=== PATIENT | female | born 1985 | race Caucasian/White ===

== ENCOUNTER 2019-03-09 20:06 | Emergency (ER) | payer BC ==
[2019-03-09] MEDS ORDERED: Sodium Chloride 0.9% 2.5 ML Syringe FLUSH PRN (20:45)
[2019-03-09] MEDS ORDERED: Acetaminophen/HYDROcodone 325-7.5 MG Tab PO ONE (20:45)
[2019-03-09] MEDS ORDERED: Sodium Chloride 0.9% 10 ML Syringe FLUSH PRN (20:45)
[2019-03-09] MEDS ORDERED: Ondansetron 4 MG/2 ML SDV IVPUSH ONE (20:45)
[2019-03-09] MEDS ORDERED: Ketorolac 30 MG/ML SDV IVPUSH ONE (20:45)
--- NOTE | 2019-03-09 20:50 | EDM.PDOC ---
ED HPI GENERAL MEDICAL PROBLEM - General Chief Complaint: Back Pain or Injury Stated Complaint: BACK INJURY Time Seen by Provider: 03/09/19 20:30 - History of Present Illness INITIAL COMMENTS - FREE TEXT/NARRATIVE: HISTORY AND PHYSICAL: History of present illness: The patient is a 33-year-old female who presents with complaints of deep lumbar back pain more on the left side that started as she was doing lifts in her home gym this evening about a half an hour ago. The patient says that she just broke back from [place] and was in a car for about 7 to 8 hours and was starting to feel some discomfort in her left back during this but did not have any kidney issues such as hematuria frequency urgency and no systemic complaints of fever chills abdominal pain nausea or vomiting. She said that after she got home she went to do her workout and was doing this exercise when she felt a sudden pain in her left back. She says that it does trigger tingling down both legs as well as some slight pelvic pain but she has no discrete abdominal pain and it originates in her deep back. She says that she cannot take any medications for this and she has no weakness in her lower extremities. She has not had any urination since this event 30 minutes ago and she denies . She does tell me that she has an ovarian cyst that she is going for evaluation in the clinic this week but it does not feel like that type of pain. She says that she has had ovarian cyst in the past and is having an evaluation in the clinic for that. She says that the slight pelvic pain she is experiencing seems to be originating more from her back and not from the anterior abdomen. Review of systems: As per history of present illness and below otherwise all systems reviewed and negative. Past medical history: As per history of present illness and as reviewed below otherwise noncontributory. Surgical history: As per history of present illness and as reviewed below otherwise noncontributory. Social history: No reported history of drug or alcohol abuse. Family history: As per history of present illness and as reviewed below otherwise noncontributory. Physical exam: General: Well-developed well-nourished mildly overweight female who is nontoxic and looks very uncomfortable with any position changes HEENT: Atraumatic, normocephalic, pupils reactive, negative for conjunctival pallor or scleral icterus, mucous membranes moist, throat clear, neck supple, nontender, trachea midline. Lungs: Clear to auscultation, breath sounds equal bilaterally, chest nontender. Heart: S1S2, regular, and rhythm no overt murmurs Abdomen: Soft, nondistended, nontender. Negative for masses or hepatosplenomegaly. Negative for costovertebral tenderness. Absolutely no tenderness rebound or guarding on deep palpation of the abdomen. Pelvis: Stable nontender. Genitourinary: Deferred. Rectal: Intact perianal sensation and a normal push and squeeze and no diminishment of rectal tone is appreciated Extremities: Atraumatic, negative for cords or calf pain. Neurovascular unremarkable. Neuro: Awake, alert, oriented. Cranial nerves II through XII unremarkable. Cerebellum unremarkable. Motor and sensory unremarkable throughout. Exam nonfocal. Dorsi and plantar flexion is intact 5/5 inclusive of the great toe and patellar reflexes are +2/4 bilaterally. Back: There are no midline step-offs tenderness defects of the thoracic or lumbar spine and no posterior pelvis tenderness. There is no CVA tenderness. There is some mild pain with palpation of the lumbar spine more on the left but I cannot reproduce the pain exactly. Diagnostics: Lumbar spine x-rays, patient denies and does not want a test CT scan of the lumbar spine Therapeutics: Norflex Toradol Zofran [place],dilaudid U Medrol She was able to free void urine here in the ED and does not have a sensation of diminished urge to urinate and does not feel like she is retaining urine. I discussed with her and her significant other about bedside her CT scan results revealing a disc bulge at L4-L5 and a broad disc bulge at L5-S1. At this point she does not meet criteria for an emergent MRI but she will need an MRI in the near future to further evaluate this and develop her care plan. She does follow with the nurse practitioner at [facility] and has a scheduled appointment this week and I told her that if she chooses outpatient management that she can follow-up and get an outpatient MRI and I will give her a prescription for same as long as she follows up with her clinic provider. I have offered her observation admission due to the status of her pain and she is currently discussing that with her significant other. On my own clinical evaluation she is moving easier but still looks very uncomfortable and says that the pain is slightly diminished but is still very present. It is not radiating down her leg and she has no tingling or numbness in her legs. She tells me that the pain never radiated down her legs, and it seemed to maybe migrate a little bit to her pelvis. That pelvic pain is now gone. She is also aware of her incidental right renal stone. After discussion with her significant other the patient would like to decline admission and wants to go home. I have given her medications for home and have strongly advised her on reasons to return to the ED and the importance of following up with her provider at [facility]. I have also given her prescription for an outpatient MRI that she can schedule and I will send those results to her nurse practitioner at [facility]. Impression: acute Lumbar back pain, disc bulging at L4-L5, L5-S1 Definitive disposition and diagnosis as appropriate pending reevaluation and review of above. Left Lower Back Pain Score (Numeric/FACES): 10 - Related Data Allergies Allergy/AdvReac Type Severity Reaction Status Date / Time No Known Allergies Allergy Verified 03/09/19 20:24 Home Meds: Home Meds . [No Known Home Meds] 03/09/19 [History] Past Medical History - Infectious Disease History Infectious Disease History: Reports: Chicken Pox - Past Surgical History Musculoskeletal Surgical History: Reports: Shoulder Surgery Other Musculoskeletal Surgeries/Procedures:: shoulders bilaterally Social & Family History - Family History Family Medical History: Noncontributory - Tobacco Use Smoking Status *Q: Never Smoker - Caffeine Use Caffeine Use: Reports: Coffee, Soda - Recreational Drug Use Recreational Drug Use: No ED ROS GENERAL - Review of Systems Review Of Systems: Comprehensive ROS is negative, except as noted in HPI. ED EXAM, GENERAL - Physical Exam Exam: See Below (see dictation) Course - Vital Signs Last Recorded V/S: Last Vital Signs Temp 37.1 C 03/09/19 20:24 Pulse 54 L 03/09/19 23:06 Resp 17 03/09/19 23:06 BP 127/74 03/09/19 23:06 Pulse Ox 97 03/09/19 23:06 - Orders/Labs/Meds Orders: Active Orders 24 hr Category Date Time Status Sodium Chloride 0.9% [Saline Flush] Med 03/09/19 20:45 Active 10 ml FLUSH ASDIRECTED PRN Sodium Chloride 0.9% [Saline Flush] Med 03/09/19 20:45 Active 2.5 ml FLUSH ASDIRECTED PRN Saline Lock Insert [OM.PC] Stat Oth 03/09/19 20:45 Ordered Medication Orders Sodium Chloride (Saline Flush) 10 ml FLUSH ASDIRECTED PRN PRN Reason: Keep Vein Open Sodium Chloride (Saline Flush) 2.5 ml FLUSH ASDIRECTED PRN PRN Reason: Keep Vein Open Meds: Medications Generic Name Dose Route Start Last Admin Trade Name Freq PRN Reason Stop Dose Admin Sodium Chloride 10 ml 03/09/19 20:45 Saline Flush FLUSH ASDIRECTED PRN Keep Vein Open Sodium Chloride 2.5 ml 03/09/19 20:45 Saline Flush FLUSH ASDIRECTED PRN Keep Vein Open Discontinued Medications Generic Name Dose Route Start Last Admin Trade Name Freq PRN Reason Stop Dose Admin Hydrocodone Bitart/Acetaminophen 1 tab 03/09/19 20:45 03/09/19 20:51 [place] 325-7.5 Mg PO 03/09/19 20:46 1 tab ONETIME ONE Administration Hydromorphone HCl 1 mg 03/09/19 21:41 03/09/19 22:20 Dilaudid IVPUSH 03/09/19 21:42 1 mg ONETIME ONE Administration Hydromorphone HCl 1 mg 03/09/19 23:14 03/09/19 23:41 Dilaudid IVPUSH 03/09/19 23:15 1 mg ONETIME ONE Administration Ketorolac Tromethamine 30 mg 03/09/19 20:45 03/09/19 20:51 Toradol IVPUSH 03/09/19 20:46 30 mg ONETIME ONE Administration Methylprednisolone Sodium Succinate 125 mg 03/09/19 23:16 03/09/19 23:38 Solu-Medrol IVPUSH 03/09/19 23:17 125 mg ONETIME ONE Administration Methylprednisolone Sodium Succinate 125 mg 03/09/19 23:18 03/09/19 23:41 Solu-Medrol IVPUSH 03/09/19 23:19 Not Given ONETIME ONE Ondansetron HCl 4 mg 03/09/19 20:45 03/09/19 20:51 Zofran IVPUSH 03/09/19 20:46 4 mg ONETIME ONE Administration Orphenadrine Citrate 60 mg 03/09/19 20:45 03/09/19 20:51 Norflex IV 03/09/19 20:46 60 mg ONETIME ONE Administration Departure - Departure Time of Disposition: 23:51 Disposition: Home, Self-Care 01 Condition: Fair Clinical Impression: Lumbar disc herniation - Discharge Information Referrals: Ritika Shaw PROFESSOR OF MUSICOLOGY [Primary Care Provider] - Forms: ED Department Discharge Additional Instructions: The following information is given to patients seen in the emergency department who are being discharged to home. This information is to outline your options for follow-up care. We provide all patients seen in our emergency department with a follow-up referral. The need for follow-up, as well as the timing and circumstances, are variable depending upon the specifics of your emergency department visit. If you don't have a primary care physician on staff, we will provide you with a referral. We always advise you to contact your personal physician following an emergency department visit to inform them of the circumstance of the visit and for follow-up with them and/or the need for any referrals to a consulting specialist. The emergency department will also refer you to a specialist when appropriate. This referral assures that you have the opportunity for followup care with a specialist. All of these measure are taken in an effort to provide you with optimal care, which includes your followup. Under all circumstances we always encourage you to contact your private physician who remains a resource for coordinating your care. When calling for followup care, please make the office aware that this follow-up is from your recent emergency room visit. If for any reason you are refused follow-up, please contact the [facility] emergency department at and ask to speak to the emergency department charge nurse. [address] [place] [address] Please schedule your outpatient MRI with the prescription you have been given and fill all prescriptions for medication and start taking tomorrow as directed. Please connect with your provider at [facility] and update her on tonight's events and the outpatient MRI that you are scheduling and discussed with her your upcoming appointment for follow-up care. Return to ER as needed and as discussed. Sepsis Event Note - Evaluation Sepsis Screening Result: No Definite Risk - Focused Exam Vital Signs: Vital Signs Temp Pulse Resp BP Pulse Ox 01/26/20 23:06 54 L 17 127/74 97 03/09/19 22:13 52 L 16 122/60 97 03/09/19 20:24 37.1 C 68 20 136/83 99 Date Exam was Performed: 03/09/19 Time Exam was Performed: 23:51 - My Orders Last 24 Hours: My Active Orders 03/09/19 20:45 Sodium Chloride 0.9% [Saline Flush] 10 ml FLUSH ASDIRECTED PRN Sodium Chloride 0.9% [Saline Flush] 2.5 ml FLUSH ASDIRECTED PRN Saline Lock Insert [OM.PC] Stat - Assessment/Plan Last 24 Hours: My Active Orders 03/09/19 20:45 Sodium Chloride 0.9% [Saline Flush] 10 ml FLUSH ASDIRECTED PRN Sodium Chloride 0.9% [Saline Flush] 2.5 ml FLUSH ASDIRECTED PRN Saline Lock Insert [OM.PC] Stat
--- NOTE | 2019-03-09 21:36 | CR ---
INDICATION: Lumbar spine pain after working out TECHNIQUE: Lumbar spine radiograph 3 views COMPARISON: None FINDINGS: Bone: No acute fractures or aggressive bone lesions are identified. Alignment is normal. Disc: The disc spaces are unremarkable in appearance. The facet joints are unremarkable. Soft tissue: Unremarkable. No radiopaque foreign bodies are seen. IMPRESSION: 1. No acute osseous injuries or abnormalities are noted. Dictated by: Cooper Arndt MD @ 03/09/2019 21:35:53 (Electronically Signed)
[2019-03-09] MEDS ORDERED: HYDROmorphone 1 MG/ML Syringe IVPUSH ONE ×2 (21:41→23:14)
--- NOTE | 2019-03-09 22:19 | CT ---
INDICATION: Back pain TECHNIQUE: CT lumbar spine without contrast. COMPARISON: Plain films from the same day FINDINGS: The lumbar spine alignment is within normal limits. The vertebral body heights are preserved without a significant compression deformity. The facets are anatomically aligned. There is no evidence of an acute lumbar spine fracture. There are degenerative anterior osteophytes at the T11-12 level. There is a disc bulge at L4-5 and a disc bulge versus broad protrusion at L5-S1. No paravertebral soft tissue mass is seen. There is a 5 mm nonobstructive right renal calcification. IMPRESSION: No evidence of an acute lumbar spine fracture. Mild degenerative disc disease in the lower lumbar spine. Dictated by Sudeep Ash MD @ 03/09/2019 10:18:48 PM Please note that all CT scans at this facility use dose modulation, iterative reconstruction, and/or weight-based dosing when appropriate to reduce radiation dose to as low as reasonably achievable. Dictated by: Sudeep Ash MD @ 03/09/2019 22:19:06 (Electronically Signed)
[2019-03-09] MEDS ORDERED: methylPREDNISolone Sodium Succinate 125 MG/2 ML SDV IVPUSH ONE ×2 (23:16→23:18)
[2019-03-10 00:14] VITALS: BP 128/66; PULSE 47
== END 2019-03-10 00:12 | disposition home or self-care (01) ==
LOC: MW.ED 20:06
DX: S33.141A Dislocation of L4/L5 lumbar vertebra, initial encounter (principal); S33.39XA Dislocation of other parts of lumbar spine and pelvis, initial encounter; X50.0XXA Overexertion from strenuous movement or load, initial encounter
CPT/HCPCS: 72100; 72131; 96374; 96375; 96376; 99284; A9270; J1170; J1885; J2360; J2405; J2930

== ENCOUNTER 2019-06-28 08:09 | Emergency (ER) | payer BC ==
--- NOTE | 2019-06-28 08:33 | EDM.PDOC ---
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 She complains of pain in the right shoulder with abduction of right shoulder. She denies any neuro/vascular complaints. She states that she has had problems with her right shoulder in the past. She denies any other complaints or symptoms at this time. Right Shoulder Pain Score (Numeric/FACES): 5 - Related Data Allergies Allergy/AdvReac Type Severity Reaction Status Date / Time No Known Allergies Allergy Verified 06/28/19 08:29 Home Meds: Home Meds . [No Known Home Meds] 03/09/19 [History] Past Medical History - Infectious Disease History Infectious Disease History: Reports: Chicken Pox - Past Surgical History Musculoskeletal Surgical History: Reports: Shoulder Surgery Other Musculoskeletal Surgeries/Procedures:: shoulders bilaterally Social & Family History - Family History Family Medical History: Noncontributory - Caffeine Use Caffeine Use: Reports: Coffee, Soda Review of Systems - Review of Systems Review Of Systems: Comprehensive ROS is negative, except as noted in HPI. ED EXAM, GENERAL - Physical Exam Exam: See Below Exam Limited By: No Limitations General Appearance: Alert, WD/WN, No Apparent Distress Eye Exam: Bilateral Eye: EOMI, Normal Inspection, PERRL Ears: Normal External Exam, Normal Canal Nose: Normal Inspection Throat/Mouth: Normal Inspection, Normal Oropharynx Head: Atraumatic, Normocephalic Neck: Normal Inspection, Supple, Non-Tender, Full Range of Motion. No: Carotid Bruit Respiratory/Chest: No Respiratory Distress, Lungs Clear, Normal Breath Sounds, Chest Non-Tender Cardiovascular: Normal Peripheral Pulses, Regular Rate, Rhythm, No Edema, No Gallop, No Murmur Peripheral Pulses: 3+: Carotid (L), Carotid (R), Radial (L), Radial (R), Dorsalis Pedis (L), Dorsalis Pedis (R) GI/Abdominal: Normal Bowel Sounds, Soft, Non-Tender, No Organomegaly, No Abnormal Bruit, No Mass (Female) Exam: Deferred Rectal (Female) Exam: Deferred Back Exam: Normal Inspection, Full Range of Motion Extremities: No Pedal Edema, Normal Capillary Refill, Other (without deformity but complains of pain over the posterior and superior aspects of the shoulder. Increased pain with abduction of the right shoulder. She is able to lift her right arm without any significant pain.) Neurological: Alert, Oriented (times 4), CN II-XII Intact, Normal Reflexes, No Motor/Sensory Deficits Psychiatric: Normal Affect, Normal Mood Skin Exam: Warm, Dry, Intact, Normal Color, No Rash Course - Vital Signs Text/Narrative:: I reviewed the patient right shoulder x-ray which was unremarkable. She most will be discharged with a shoulder immobilizer for comfort. She agrees with the discharge plan. Last Recorded V/S: Last Vital Signs Temp 96.6 F L 06/28/19 08:26 Pulse 70 06/28/19 08:26 Resp 16 06/28/19 08:26 BP 127/67 06/28/19 08:26 Pulse Ox 98 06/28/19 08:26 - Orders/Labs/Meds Orders: Active Orders 24 hr Category Date Time Status Shoulder Comp Rt [CR] Stat Exams 06/28/19 08:25 Taken Departure - Departure Time of Disposition: 09:15 Disposition: Home, Self-Care 01 Condition: Good Clinical Impression: Right shoulder pain Qualifiers: Chronicity: acute Qualified Code(s): M25.511 - Pain in right shoulder - Discharge Information *PRESCRIPTION DRUG MONITORING PROGRAM REVIEWED*: Yes *COPY OF PRESCRIPTION DRUG MONITORING REPORT IN PATIENT JENNY: Yes Instructions: Shoulder Pain, How to Use Cold Therapy, [id number] Referrals: Ritika Shaw PL[employer]ER [Primary Care Provider] - Forms: ED Department Discharge Additional Instructions: Take over the counter medications for pain as needed. Cold compresses for the next two days (30 minutes on and one hour off while awake). Follow up with your PCP in the next two to four days. If your shoulder pain continues, you might need to have an MRI for further evaluation to rule out rotator cuff injury. Rest for the next 24 hours. Try sliding into any base feet first!!! Return to the ED if your condition gets worse or should you have any questions or concerns. The following information is given to patients seen in the emergency department who are being discharged to home. This information is to outline your options for follow-up care. We provide all patients seen in our emergency department with a follow-up referral. The need for follow-up, as well as the timing and circumstances, are variable depending upon the specifics of your emergency department visit. If you don't have a primary care physician on staff, we will provide you with a referral. We always advise you to contact your personal physician following an emergency department visit to inform them of the circumstance of the visit and for follow-up with them and/or the need for any referrals to a consulting specialist. The emergency department will also refer you to a specialist when appropriate. This referral assures that you have the opportunity for follow-up care with a specialist. All of these measure are taken in an effort to provide you with optimal care, which includes your follow-up. Under all circumstances we always encourage you to contact your private physician who remains a resource for coordinating your care. When calling for follow-up care, please make the office aware that this follow-up is from your recent emergency room visit. If for any reason you are refused follow-up, please contact the [facility] Emergency Department at and asked to speak to the emergency department charge nurse. Sepsis Event Note - Focused Exam Vital Signs: Vital Signs Temp Pulse Resp BP Pulse Ox 06/28/19 08:26 96.6 F L 70 16 127/67 98 Date Exam was Performed: 06/28/19 Time Exam was Performed: 09:01 - My Orders Last 24 Hours: My Active Orders 06/28/19 08:25 Shoulder Comp Rt [CR] Stat - Assessment/Plan Last 24 Hours: My Active Orders 06/28/19 08:25 Shoulder Comp Rt [CR] Stat
--- NOTE | 2019-06-28 09:07 | CR ---
Right shoulder: 2 views of the right shoulder were obtained. Comparison: No prior shoulder exam. Acromioclavicular and glenohumeral joints appear within normal limits. No fracture or other bony abnormality is identified. Impression: 1. No abnormality is identified on 2 view right shoulder study. Diagnostic code #1 This report was dictated in MDT
[2019-06-28 09:27] VITALS: BP 124/80; PULSE 71
== END 2019-06-28 09:24 | disposition home or self-care (01) ==
LOC: MW.ED 08:09
DX: M25.511 Pain in right shoulder (principal); X58.XXXA Exposure to other specified factors, initial encounter; Y93.64 Activity, baseball
CPT/HCPCS: 73030-26-RT; 73030-RT; 99282; 99283

== ENCOUNTER 2020-05-20 10:14 | Day surgery (SDC) | payer BC ==
[~2020-05-20 10:14] MED LIST: Lidocaine 2% 5 ML SDV ONE; Midazolam 1 MG/ML 2 ML SDV ONE; Propofol 200 MG/20 ML SDV ONE; fentaNYL 100 MCG/2 ML SDV ONE
[2020-05-20] MEDS ORDERED: Lactated Ringers 1,000 ML IV SCH (10:30)
--- NOTE | 2020-05-20 11:47 | PCM.PREANE ---
Preanesthetic Assessment - Anesthesia/Transfusion/Family Hx Anesthesia History: Prior Anesthesia Without Reaction Family History of Anesthesia Reaction: No Transfusion History: No Prior Transfusion(s) - Review of Systems General: No Symptoms Pulmonary: No Symptoms Cardiovascular: No Symptoms Gastrointestinal: No Symptoms Neurological: No Symptoms Other: Reports: None - Physical Assessment NPO Status Date: 05/20/20 NPO Status Time: 00:05 Vital Signs: Last Vital Signs Temp 97.7 F 05/20/20 11:14 Pulse 55 L 05/20/20 11:14 Resp 16 05/20/20 11:14 BP 149/78 H 05/20/20 11:14 Pulse Ox 97 05/20/20 11:14 Height: 5 ft 10 in Weight: 256 lb ASA Class: 2 Mental Status: Alert & Oriented x3 Airway Class: Mallampati = 2 Dentition: Reports: Normal Dentition ROM/Head Extension: Full Lungs: Clear to Auscultation, Normal Respiratory Effort Cardiovascular: Regular Rate, Regular Rhythm - Lab Values: Laboratory Last Values Urine HCG, Qual NEGATIVE (NEGATIVE) 05/20/20 10:26 - Allergies Allergies/Adverse Reactions: Allergies Allergy/AdvReac Type Severity Reaction Status Date / Time No Known Allergies Allergy Verified 05/20/20 11:12 - Anesthesia Plan Pre-Op Medication Ordered: None - Acknowledgements Anesthesia Type Planned: General Anesthesia Pt an Appropriate Candidate for the Planned Anesthesia: Yes Alternatives and Risks of Anesthesia Discussed w Pt/Guardian: Yes Pt/Guardian Understands and Agrees with Anesthesia Plan: Yes Additional Comments: npo after mn obesity bmi 37 tob none etoh occ par no questions PreAnesthesia Questionnaire Gastrointestinal History: Reports: Other (See Below) Other Gastrointestinal History: dysphagia Musculoskeletal History: Reports: Fracture Other Musculoskeletal History: hx of fx finger Neurological History: Reports: Concussion Endocrine/Metabolic History: Reports: Obesity/BMI 30+ - Infectious Disease History Infectious Disease History: Reports: Chicken Pox - Past Surgical History Head Surgeries/Procedures: Reports: None GI Surgical History: Reports: None Musculoskeletal Surgical History: Reports: Shoulder Surgery Other Musculoskeletal Surgeries/Procedures:: bilateral shoulder arthroscopies - SUBSTANCE USE Tobacco Use Status *Q: Never Tobacco User Recreational Drug Use History: No - HOME MEDS Home Medications: Home Meds . [No Known Home Meds] 03/09/19 [History] - CURRENT (IN HOUSE) MEDS Current Meds: Current Medications Lactated Ringer's (Ringers, Lactated) 1,000 mls @ 125 mls/hr IV ASDIRECTED RYDER Last Admin: 05/20/20 10:59 Dose: 125 mls/hr Documented by: Discontinued Medications Fentanyl (Fentanyl 100 Mcg/2 Ml Sdv) Confirm Administered Dose 100 mcg .ROUTE .STK-MED ONE Stop: 05/20/20 09:15 Lidocaine (Lidocaine 2% 5 Ml Sdv) Confirm Administered Dose 5 ml .ROUTE .STK-MED ONE Stop: 05/20/20 09:15 Midazolam HCl (Midazolam 1 Mg/Ml 2 Ml Sdv) Confirm Administered Dose 2 mg .ROUTE .STK-MED ONE Stop: 05/20/20 09:14 Propofol (Propofol 200 Mg/20 Ml Sdv) Confirm Administered Dose 200 mg .ROUTE .STK-MED ONE Stop: 05/20/20 09:14
--- NOTE | 2020-05-20 13:32 | PCM.OPNOTE ---
- General Post-Op/Procedure Note Date of Surgery/Procedure: 05/20/20 Operative Procedure(s): Diagnostic EGD with biopsy Findings: POssible chronic gastritis of the antrum of the stomach otherwise normal exam Pre Op Diagnosis: Dysphagia, atypical chest pain Post-Op Diagnosis: same Anesthesia Technique: MAC Primary Surgeon: Katty Ibarra Condition: Good
--- NOTE | 2020-05-20 14:35 | PCM48HPAN ---
Post Anesthesia Note - EVALUATION WITHIN 48HRS OF ANESTHETIC Vital Signs in Normal Range: Yes Patient Participated in Evaluation: Yes Respiratory Function Stable: Yes Airway Patent: Yes Cardiovascular Function Stable: Yes Hydration Status Stable: Yes Pain Control Satisfactory: Yes Nausea and Vomiting Control Satisfactory: Yes Mental Status Recovered: Yes Vital Signs: Last Vital Signs Temp 97.7 F 05/20/20 11:14 Pulse 71 05/20/20 13:42 Resp 13 05/20/20 13:42 BP 136/91 H 05/20/20 13:42 Pulse Ox 97 05/20/20 13:42
--- NOTE | 2020-05-20 14:35 | PCM.POSTAN ---
POST ANESTHESIA ASSESSMENT - MENTAL STATUS Mental Status: Alert, Oriented - VITAL SIGNS Vital Signs: Last Vital Signs Temp 97.7 F 05/20/20 11:14 Pulse 71 05/20/20 13:42 Resp 13 05/20/20 13:42 BP 136/91 H 05/20/20 13:42 Pulse Ox 97 05/20/20 13:42 - RESPIRATORY Respiratory Status: Respiratory Rate WNL, Airway Patent, O2 Saturation Stable - CARDIOVASCULAR CV Status: Pulse Rate WNL, Blood Pressure Stable - GASTROINTESTINAL GI Status: No Symptoms - POST OP HYDRATION Hydration Status: Adequate & Stable
[2020-05-20 15:27] VITALS: BP 127/94; PULSE 65
--- NOTE | 2020-05-20 20:24 | OR ---
SURGEON: KATTY IBARRA MD DATE OF PROCEDURE: 05/20/2020 PREOPERATIVE DIAGNOSES: 1. Atypical chest pain. 2. Dysphagia. POSTOPERATIVE DIAGNOSES: 1. Atypical chest pain. 2. Dysphagia. PROCEDURE PERFORMED: Diagnostic esophagogastroduodenoscopy with biopsy. PRIMARY SURGEON: Katty Ibarra MD ANESTHESIA: MAC. INSTRUMENT USED: Olympus endoscope. EXTENT OF EXAM: To the 2nd portion of duodenum. PREPARATION: Good. LIMITATIONS: None. INDICATIONS FOR EXAMINATION: The patient is a 35-year-old female who presents with several months of dysphagia as well as atypical chest pain. The patient has had a complete cardiac workup which was negative. She has tried a short trial of PPIs with no relief in her symptoms. The decision was made to proceed to the operating room to perform a diagnostic EGD with biopsies to rule out any upper GI source of her dysphagia and chest pain. I explained the procedure, expected perioperative course, and the risks. The patient verbalized understanding and wishes to proceed. PROCEDURE IN DETAIL: The patient was brought to the endoscopy suite and placed in a beach chair position. A time-out was completed verifying the patient's name, age, date of , allergies, and procedure to be performed. A bite block was placed in the patient's mouth. Monitored anesthesia care was induced and continuous oxygen was provided via nasal cannula throughout the procedure. After adequate sedation was achieved, a well-lubricated endoscope was placed in the patient's mouth and advanced under direct visualization to the 2nd portion of duodenum. This appeared normal. A photograph was taken. The scope was fully withdrawn while examining the color, texture, anatomy, and integrity of mucosa of the upper GI tract. The duodenal mucosa appeared normal. A biopsy was taken in the duodenal bulb and sent to Pathology, labeled as duodenum. The scope was brought into the stomach and a photograph was taken of the pylorus and GE junction. There was no evidence of any gross inflammation or ulceration, but possibly some chronic gastritis noted within the antrum of the stomach. Biopsies were taken of the antrum, body, and fundus, and sent for histologic review and H pylori testing. The scope was brought into the distal esophagus. The Z-line appeared normal. The distal esophageal mucosa appeared free of inflammation or ulceration. A biopsy was taken 1 cm above the Z-line and sent to Pathology, labeled as esophagus. The scope was removed and the procedure terminated. The patient tolerated the procedure well and was taken to the PACU in stable condition. ENDOSCOPIC DIAGNOSES: Dysphagia, chest pain. RECOMMENDATIONS: We will have the patient perform an esophagram to assess for any esophageal dysmotility. We will follow up in clinic in 2 weeks to go through our imaging and biopsy results and determine the next steps in treatment. AYLIN REYNA /[id number]
== END 2020-05-20 14:50 | disposition home or self-care (01) ==
LOC: MW.SDS 10:14
PROVIDERS: ATTEND Surgery
DX: K29.50 Unspecified chronic gastritis without bleeding (principal); K20.90 Esophagitis, unspecified without bleeding; R13.10 Dysphagia, unspecified; E66.9 Obesity, unspecified; Z79.899 Other long term (current) drug therapy; Z98.890 Other specified postprocedural states; Z68.36 Body mass index [BMI] 36.0-36.9, adult
CPT/HCPCS: 43239; 81025; 88305; 88312; J2250; J2704; J3010; J7120; 00731

== ENCOUNTER 2022-01-30 16:22 | Emergency (ER) | payer BC ==
[2022-01-30] MEDS ORDERED: Sodium Chloride 0.9% 2.5 ML Syringe FLUSH PRN (17:48)
[2022-01-30] MEDS ORDERED: Ketorolac 30 MG/ML SDV IVPUSH ONE (17:48)
[2022-01-30] MEDS ORDERED: Sodium Chloride 0.9% 1,000 ML IV ONE (17:48)
[2022-01-30] MEDS ORDERED: Ondansetron 4 MG/2 ML SDV IVPUSH ONE (17:48)
[2022-01-30] MEDS ORDERED: Sodium Chloride 0.9% 10 ML Syringe FLUSH PRN (17:48)
[2022-01-30] MEDS ORDERED: Acetaminophen 500 MG Tab PO ONE (17:51)
[2022-01-30 18:09] LABS: CORONAVIRUS COVID-19 NAA NEGATIVE (NEGATIVE); INFLUENZA A NAA POSITIVE (NEGATIVE); INFLUENZA B NAA NEGATIVE (NEGATIVE)
[2022-01-30 18:50] LABS: CARBON DIOXIDE,CO2 27.5 mmol/L (21.0-32.0); POTASSIUM,K 3.6 mmol/L (3.5-5.1)
[2022-01-30 19:14] VITALS: BP 123/78; PULSE 87
== END 2022-01-30 19:12 | disposition home or self-care (01) ==
LOC: MW.ED 16:22
DX: J10.1 Influenza due to other identified influenza virus with other respiratory manifestations (principal); E66.9 Obesity, unspecified; Z68.33 Body mass index [BMI] 33.0-33.9, adult; Z20.822 Contact with and (suspected) exposure to COVID-19
CPT/HCPCS: 0240U; 36415; 71045; 80053; 83735; 85007; 85027; 96361; 96374; 96375; 99285; A9270; J1885; J2405; J3490; J7030; 99284

== ENCOUNTER 2022-08-28 12:23 | Emergency (ER) | payer BC ==
[2022-08-28] MEDS ORDERED: Acetaminophen 500 MG Tab PO ONE (13:51)
[2022-08-28] MEDS ORDERED: Ondansetron 4 MG Tab.DIS PO ONE (13:51)
[2022-08-28 16:43] VITALS: BP 146/98; PULSE 71
== END 2022-08-28 16:43 | disposition home or self-care (01) ==
LOC: MW.ED 12:23
DX: S06.0X1A Concussion with loss of consciousness of 30 minutes or less, initial encounter (principal); E66.9 Obesity, unspecified; Z68.33 Body mass index [BMI] 33.0-33.9, adult; W22.8XXA Striking against or struck by other objects, initial encounter
CPT/HCPCS: 70450; 70450-26; 81025; 99283; 99284